=== PATIENT | female | born 1990 | race Caucasian/White ===

== ENCOUNTER 2018-08-04 12:55 | Emergency (ER) | payer MEDICAID ==
[~2018-08-04] VITALS: Ht 154.9 cm; Wt 49.0 kg
--- NOTE | 2018-08-04 13:17 | NUR ---
[id number] C/O NAUSEA AND SHAKES, ETOH WITHDRAWAL. LAST ETOH LAST NIGHT. PT IS AOX3, VSS, RR EVEN AND UNLABORED ON RA. HAVING SOME NAUSEA AND VOMIT, BUT ONLY SOME LIQUID COMING OUT. HOOKED TO MONITOR AND READY FOR EVAL.
[2018-08-04] MEDS ORDERED: ONDANSETRON HCL/PF 4 MG/2 ML VIAL ONE (13:23)
[2018-08-04] MEDS ORDERED: IV NS 0.9% 1,000 ML BAG IV ONE (13:30)
[2018-08-04] MEDS ORDERED: ONDANSETRON HCL/PF 4 MG/2 ML VIAL IVP ONE (13:30)
[2018-08-04 13:33] LABS: APPEARANCE,URINE Clear (CLEAR); BILIRUBIN,URINE Negative (NEGATIVE); BLOOD, URINE Negative Ery/uL (NEGATIVE); COLOR,URINE Yellow (YELLOW); KETONES,URINE 15 (NEGATIVE); LEUKOCYTE ESTERASE ,URINE Trace (NEGATIVE); NITRITE, URINE Negative (NEGATIVE); PROTEIN,URINE Trace mg/dl (NEGATIVE); UGLUCOSE Negative (NEGATIVE); UROBILINOGEN,URINE 0.2 EU/dL (0.2)
[2018-08-04 13:44] LABS: BASOPHILS % (AUTO) 0.5 % (0.0-2.0); HEMATOCRIT 37 % (33-45); HEMOGLOBIN 12.6 g/dL (11.5-14.8); LYMPHOCYTES # (AUTO) 0.7 /CMM (0.8-4.8); LYMPHOCYTES % (AUTO) 7.1 % (20.0-44.0); MEAN CORPUSCULAR HGB CONC 34 g/dl (31.0-36.0); MEAN CORPUSCULAR VOLUME 94 fL (82-100); MONOCYTES # (AUTO) 0.5 /CMM (0.1-1.30); MONOCYTES % (AUTO) 5.2 % (2.0-12.0); NEUTROPHILS # (AUTO) 8.6 /CMM (1.8-8.9); NEUTROPHILS % (AUTO) 87.2 % (43.0-81.0); PLATELET COUNT (AUTO) 263 /CMM (150-450); WHITE BLOOD COUNT (AUTO) 9.9 K/uL (4.3-11.0)
[2018-08-04 13:47] LABS: BACTERIA,URINE Few /HPF (None Seen); MUCUS,URINE Moderate /LPF (None Seen); SQUAMOUS EPITHELIAL CELL,UR Many /HPF (None Seen)
[2018-08-04 13:48] LABS: RBC,URINE 0-2 /HPF (0-2)
[2018-08-04 13:58] LABS: POTASSIUM 3.8 mmol/L (3.5-5.1)
[2018-08-04 14:09] LABS: CALCIUM, SERUM 9.1 mg/dL (8.5-10.1); CARBON DIOXIDE 21 mmol/L (21-32); CHLORIDE 101 mmol/L (98-107); CREATININE 0.8 mg/dL (0.6-1.3); GLUCOSE 144 mg/dL (74-106); SODIUM SERUM 138 mmol/L (136-145); UREA NITROGEN, BLOOD 12 mg/dL (7-18)
[2018-08-04 14:17] LABS: BILIRUBIN,DIRECT 0.1 mg/dL (0.0-0.2); BILIRUBIN,TOTAL 0.7 mg/dL (0.2-1.0)
[2018-08-04 14:18] LABS: ACETAMINOPHEN < 2 ug/ml (10-30); ALANINE AMINOTRANSFERASE 37 U/L (12-78); ALBUMIN 4.2 g/dL (3.4-5.0); ALKALINE PHOSPHATASE 114 U/L (46-116); ASPARTATE AMINOTRANSFERASE 54 U/L (15-37); SALICYLATE 2.4 mg/dL (2.8-20.0); TOTAL PROTEIN, SERUM 8.6 g/dL (6.4-8.2)
[2018-08-04 14:25] LABS: ALCOHOL, BLOOD < 3 mg/dL (0-0)
[2018-08-04] MEDS ORDERED: CHLORDIAZEPOXIDE HCL 25 MG CAPSULE ONE ×2 (14:45→19:49)
[2018-08-04] MEDS ORDERED: CHLORDIAZEPOXIDE HCL 25 MG CAPSULE PO ONE ×2 (15:00→20:00)
--- NOTE | 2018-08-04 15:25 | NUR ---
Patient is resting comfortably in bed with eyes closed. Easily aroused. VSS
--- NOTE | 2018-08-04 16:11 | NUR ---
YING ROQUE AT BEDSIDE FOR EVAL
--- NOTE | 2018-08-04 16:16 | NUR ---
Social service consult requested by ADRYAN Johns for homelessness and alcohol abuse. Pt. is a 27 year old female who was brought to [facility] by ambulance for ETOH withdrawals. YING met with pt. bedside. Pt. is alert and oriented x 4. Pt. appears disheveled and dirty. Pt. states she moved from [place] to [place] three months ago because of the weather. Pt. is homeless since moving from [place]. Pt. was homeless in [place] as well. Pt. states she drinks 1/5th of vodka per day. Pt. 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 Pt. uses crystal methamphetamines every few days. Pt. last used four days ago. Pt. stated she wants longterm placement. YING informed pt. she will have to wait in the lobby until tomorrow when longterm placement is available. SW had called [facility] and was informed by staff Dali that they have no beds tonight and to call tomorrow at 10AM. Pt. stated she is willing to stay in the lobby until tomorrow. SW to follow up with pt. regarding longterm placement tomorrow morning. Homeless Patient Waiver form and resources were placed in pt's chart in case pt. decided not wanting longterm anymore. YING updated the doctor and RN Florencio regarding pt. waiting in the lobby until tomorrow morning for longterm placement.
--- NOTE | 2018-08-04 18:14 | NUR ---
CALLED DIETARY FOR FOOD TRAY
--- NOTE | 2018-08-04 18:27 | NUR ---
PROVIDED PT WITH FOOD TRAY
--- NOTE | 2018-08-04 19:16 | NUR ---
TOOK PT TO RESTROOM VIA WC. GAIT IS VERY UNSTEADY.
--- NOTE | 2018-08-04 22:07 | NUR ---
PT ASLEEP IN [place]. AROUSES EASILY. VSS. NO COMPLAINTS AT THIS TIME.
--- NOTE | 2018-08-05 07:35 | NUR ---
PT IN BED ASLEEP, EASILY AROUSABLE BY VOICE. STILL FEELS NAUSEAOUS VERBALIZED BY PT. HOOKED TO MONITOR, KEPT WARM AND SAFE. WILL CONTINUE TO MONITOR.
--- NOTE | 2018-08-05 08:16 | NUR ---
GRADES 7 AND 8 TEACHER JUDE AT BEDSIDE. AWAITING TO CALL DETENTION @ 1000
--- NOTE | 2018-08-05 08:25 | NUR ---
INFORMED BAKER PASTRY JUDE THAT SHE DOES NOT WANT TO BE PLACED IN A HALFWAY, SIGNED HOMELESS WAIVER FORM, ORDERED BREAKFAST FROM DIETARY, TAP CARD ORDERED FROM SURVEILLANCE INVESTIGATOR.
--- NOTE | 2018-08-05 08:28 | NUR ---
BREAKFAST TRAY SERVED TO PT, TOLERATING PO WELL.
--- NOTE | 2018-08-05 08:46 | NUR ---
SW met with pt. bedside to inquire if she was still interested in nursing home placement. Pt. stated, " No, I want to go to [facility] to find my boyfriend." Pt. was given list of homeless shelters and homeless resources such as food morales, transitional living, health clinics and drug rehab programs. Copy of resources given to the pt. were placed in pt's chart as well. Homeless Patient Waiver Form was signed by the pt. and placed in pt's chart. Pt. was provided with breakfast and TAP card. DONNY Hull and pt's nurse were notified of pt's discharge plan. No other social service needs are requested at this time.
--- NOTE | 2018-08-05 09:29 | NUR ---
PT CHANGED HER MIND AND WOULD LIKE TO BE PLACED IN A CARE HOME, MADE INVENTORY CONTROL PLANNER JUDE AWARE.
--- NOTE | 2018-08-05 09:35 | NUR ---
LAUNDRY SORTER JUDE AT BEDSIDE
--- NOTE | 2018-08-05 09:43 | NUR ---
PT IN STABLE CONDITION, VSS, PROVIDED WITH RESOURCES. IV removed. Catheter intact and site benign. Pressure and 4x4 applied to site. No bleeding noted. ID BAND REMOVED. ASSISTED TO CHAIR ROOM 18 UNTIL AVAILABILITY OF NURSING HOME.
[2018-08-05 11:20] VITALS: BP 112/67
--- NOTE | 2018-08-05 11:25 | NUR ---
SW was informed by pt' s RN that pt. no longer wants [facility] and wants to leave. Pt. was provided with TAP card.
--- NOTE | 2018-08-05 11:32 | NUR ---
PT VERBALIZED TO SECURITY THAT SHE DOES NOT WANT TO BE PLACED IN CORRECTION. AUTO PAINTER HELPER JUDE MADE AWARE. TAP CARD PROVIDED. Patient given written and verbal discharge instructions. Patient verbalizes understanding of instructions. Patient is ambulatory with steady gait. Patient given list of available shelters in surrounding area.
== END 2018-08-05 11:40 | disposition home or self-care (01) ==
LOC: ER 13:00
DX: F10.239 Alcohol dependence with withdrawal, unspecified (principal); F19.10 Other psychoactive substance abuse, uncomplicated; Y90.0 Blood alcohol level of less than 20 mg/100 ml
CPT/HCPCS: 36415; 80048; 80076; 80305; 80307; 80329; 81001; 84703; 85025; 96374; 99283; G0480; J2405; J7030; 81000-TC

== ENCOUNTER 2019-06-21 21:06 | Emergency (ER) | payer MEDICAID, OTHER ==
[~2019-06-21] VITALS: Ht 152.4 cm; Wt 45.4 kg
[2019-06-21 21:06] VITALS: BP 136/90
[2019-06-21] MEDS ORDERED: KETOROLAC TROMETHAMINE INJ 30 MG/ML VIAL ONE (21:45)
[2019-06-21] MEDS ORDERED: KETOROLAC TROMETHAMINE INJ 60 MG/2 ML VIAL IM ONE (22:00)
--- NOTE | 2019-06-21 22:20 | NUR ---
Patient discharged to home in stable condition. Written and verbal after care instructions given. Patient verbalizes understanding of instruction.
== END 2019-06-21 22:21 | disposition home or self-care (01) ==
LOC: ER 21:19
DX: S39.82XA Other specified injuries of lower back, initial encounter (principal); G43.909 Migraine, unspecified, not intractable, without status migrainosus; V03.99XA Pedestrian with other conveyance injured in collision with car, pick-up truck or van, unspecified whether traffic or nontraffic accident, initial encounter; Y93.01 Activity, walking, marching and hiking; Y92.89 Other specified places as the place of occurrence of the external cause; Y99.8 Other external cause status
CPT/HCPCS: 84703; 96372; 99283; J1885